=== PATIENT | male | born 1970 | race Caucasian/White ===

== ENCOUNTER → 2020-02-11 | Outpatient (CLI) | payer OTHER | END | disposition home or self-care (01) | LOC: LABWHC1 12:39 | PROVIDERS: ATTEND Anesthesiology | DX: Z11.59 Encounter for screening for other viral diseases (principal) | CPT/HCPCS: 87635 ==

== ENCOUNTER → 2020-05-07 | Outpatient (CLI) | payer OTHER ==
--- NOTE | 2020-05-07 08:37 | XR ---
EXAMINATION TYPE: XR chest 2V DATE OF EXAM: 05/07/2020 COMPARISON: NONE TECHNIQUE: PA and lateral views submitted. HISTORY: Cough and fever FINDINGS: Subsegmental left perihilar changes are seen. No pleural effusion or pneumothorax. No overt failure. Heart size normal. Hyperinflation suggests COPD. IMPRESSION: 1. COPD with left basilar atelectasis or early infiltrate.
== END | disposition home or self-care (01) ==
LOC: RADXRWHC 08:02
PROVIDERS: ATTEND Internal Medicine
DX: U07.1 COVID-19 (principal); J44.9 Chronic obstructive pulmonary disease, unspecified
CPT/HCPCS: 71046

== ENCOUNTER 2020-05-09 15:26 | Inpatient (IN) | payer OTHER ==
[2020-05-09] MEDS ORDERED: SODIUM CHLORIDE 0.9% 1,000 ML IV STA (16:17)
[2020-05-09] MEDS ORDERED: ACETAMINOPHEN TAB 500 MG TAB PO STA (16:17)
[2020-05-09 16:24] LABS: Basophils % (A) 0 %; Eosinophils % (A) 0 %; HCT 48.9 % (39.0-53.0); HGB 16.6 gm/dL (13.0-17.5); Lymphocytes # (A) 0.6 k/uL (1.0-4.8); Lymphocytes % (A) 5 %; MCH 31.5 pg (25.0-35.0); MCHC 33.9 g/dL (31.0-37.0); MCV 92.9 fL (80.0-100.0); Mean Platelet Volume 7.9; Monocytes # (A) 0.5 k/uL (0-1.0); Monocytes % (A) 5 %; Neutrophils # (A) 10.8 k/uL (1.3-7.7); Neutrophils % (A) 89 %; RBC 5.27 m/uL (4.30-5.90); WBC 12.1 k/uL (3.8-10.6)
[2020-05-09] MEDS: DEXAMETHASONE SOD PHOSPHATE 10 MG/ML 1 ML VIAL IV SCH (16:25)
[2020-05-09 16:27] LABS: Platelet Count 194 k/uL (150-450)
[2020-05-09 16:30] LABS: ALT 116 U/L (4-49); AST 106 U/L (17-59); African American GFR (CKD) >90 (>60 ml/min/1.73 sqM); Albumin 3.9 g/dL (3.5-5.0); Alkaline Phosphatase 467 U/L (38-126); Anion Gap 7 mmol/L; Blood Urea Nitrogen 16 mg/dL (9-20); C Reactive Protein 26.3 mg/L (<10.0); Calcium 9.1 mg/dL (8.4-10.2); Carbon Dioxide 26 mmol/L (22-30); Chloride 103 mmol/L (98-107); Glucose 118 mg/dL (74-99); LDH 757 U/L (313-618); Magnesium 1.8 mg/dL (1.6-2.3); Non-African American GFR(CKD) >90 (>60 ml/min/1.73 sqM); Potassium 4.3 mmol/L (3.5-5.1); Sodium 136 mmol/L (137-145); Total Protein 7.8 g/dL (6.3-8.2)
[2020-05-09 16:32] LABS: D-Dimer 0.58 mg/L FEU (<0.60); INR 0.9 (<1.2); Partial Thromboplastin Time 23.5 sec (22.0-30.0); Prothrombin Time 9.5 sec (9.0-12.0)
--- NOTE | 2020-05-09 16:44 | XR ---
EXAMINATION TYPE: XR chest 1V portable DATE OF EXAM: 05/09/2020 COMPARISON: NONE HISTORY: Cough and fever TECHNIQUE: Single view FINDINGS: Heart and mediastinum are normal. There is slight coarsening of interstitial markings. Ther e is no pulmonary consolidation. Bony thorax is intact. There is no pleural effusion. IMPRESSION: There is a mild pulmonary interstitial increased density increased compared to old exam. No pulmonary consolidation or heart failure.
[2020-05-09] MEDS ORDERED: AZITHROMYCIN 500 MG in SODIUM CHLORIDE 0.9% 250 ML IVPB STA (18:11)
--- NOTE | 2020-05-09 18:19 | ED ---
SOB HPI - General Chief Complaint: Shortness of Breath Stated Complaint: fever Time Seen by Provider: 05/09/20 15:44 Source: patient, family Mode of arrival: ambulatory Limitations: no limitations - History of Present Illness Initial Comments: Patient presents with shortness of breath. He also nearly passed out earlier today. He has lightheadedness. He has no chest or belly or back pain. He has no blood in the stool. He has no dysuria. He has no nausea or vomiting or diaphoresis. 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 He has cough. He feels worse with exertion. - Related Data Allergies Allergy/AdvReac Type Severity Reaction Status Date / Time No Known Allergies Allergy Verified 05/09/20 15:35 Review of Systems ROS Statement: Those systems with pertinent positive or pertinent negative responses have been documented in the HPI. ROS Other: All systems not noted in ROS Statement are negative. Past Medical History Past Medical History: No Reported History History of Any Multi-Drug Resistant Organisms: None Reported Past Surgical History: No Surgical Hx Reported Past Psychological History: No Psychological Hx Reported Smoking Status: Never smoker Past Alcohol Use History: None Reported Past Drug Use History: None Reported General Exam Limitations: no limitations General appearance: alert, in no apparent distress Head exam: Present: atraumatic, normocephalic, normal inspection Eye exam: Present: normal appearance, PERRL, EOMI. Absent: scleral icterus, conjunctival injection, periorbital swelling ENT exam: Present: normal exam, mucous membranes moist Neck exam: Present: normal inspection. Absent: tenderness, meningismus, lymphadenopathy Respiratory exam: Present: normal lung sounds bilaterally. Absent: respiratory distress, wheezes, rales, rhonchi, stridor Cardiovascular Exam: Present: regular rate, normal rhythm, normal heart sounds. Absent: systolic murmur, diastolic murmur, rubs, gallop, clicks GI/Abdominal exam: Present: soft, normal bowel sounds. Absent: distended, tenderness, guarding, rebound, rigid Extremities exam: Present: normal inspection, full ROM, normal capillary refill. Absent: tenderness, pedal edema, joint swelling, calf tenderness Back exam: Present: normal inspection Neurological exam: Present: alert, oriented X3, CN II-XII intact Psychiatric exam: Present: normal affect, normal mood Skin exam: Present: warm, dry, intact, normal color. Absent: rash Course Vital Signs 05/09/20 05/09/20 05/09/20 15:35 16:16 17:21 Temperature 97.5 F L 99.1 F Pulse Rate 59 L 46 L Respiratory 18 20 18 Rate Blood Pressure 116/65 132/79 O2 Sat by Pulse 97 97 Oximetry Medical Decision Making - Medical Decision Making patient presents with shortness of breath. I'm concerned given his near syncopal episode. Patient will be admitted overnight. - Lab Data Result diagrams: 05/09/20 15:44 05/09/20 15:44 Lab Results 05/09/20 05/09/20 05/09/20 Range/Units 15:44 15:44 15:44 WBC 12.1 H (3.8-10.6) k/uL RBC 5.27 (4.30-5.90) m/uL Hgb 16.6 (13.0-17.5) gm/dL Hct 48.9 (39.0-53.0) % MCV 92.9 (80.0-100.0) fL MCH 31.5 (25.0-35.0) pg MCHC 33.9 (31.0-37.0) g/dL RDW 12.0 (11.5-15.5) % Plt Count 194 D (150-450) k/uL MPV 7.9 Neutrophils % 89 % Lymphocytes % 5 % Monocytes % 5 % Eosinophils % 0 % Basophils % 0 % Neutrophils # 10.8 H (1.3-7.7) k/uL Lymphocytes # 0.6 L (1.0-4.8) k/uL Monocytes # 0.5 (0-1.0) k/uL Eosinophils # 0.0 (0-0.7) k/uL Basophils # 0.0 (0-0.2) k/uL PT 9.5 (9.0-12.0) sec INR 0.9 (<1.2) APTT 23.5 (22.0-30.0) sec D-Dimer 0.58 (<0.60) mg/L FEU Sodium 136 L (137-145) mmol/L Potassium 4.3 (3.5-5.1) mmol/L Chloride 103 (98-107) mmol/L Carbon Dioxide 26 (22-30) mmol/L Anion Gap 7 mmol/L BUN 16 (9-20) mg/dL Creatinine 0.75 (0.66-1.25) mg/dL Est GFR (CKD-EPI)AfAm >90 (>60 ml/min/1.73 sqM) Est GFR (CKD-EPI)NonAf >90 (>60 ml/min/1.73 sqM) Glucose 118 H (74-99) mg/dL Plasma Lactic Acid Leonardo (0.7-2.0) mmol/L Calcium 9.1 (8.4-10.2) mg/dL Magnesium 1.8 (1.6-2.3) mg/dL Total Bilirubin 1.0 (0.2-1.3) mg/dL AST 106 H (17-59) U/L ALT 116 H (4-49) U/L Alkaline Phosphatase 467 H (38-126) U/L Lactate Dehydrogenase 757 H (313-618) U/L C-Reactive Protein 26.3 H (<10.0) mg/L Total Protein 7.8 (6.3-8.2) g/dL Albumin 3.9 (3.5-5.0) g/dL Coronavirus (PCR) (Not Detectd) 05/09/20 05/09/20 Range/Units 15:44 17:30 WBC (3.8-10.6) k/uL RBC (4.30-5.90) m/uL Hgb (13.0-17.5) gm/dL Hct (39.0-53.0) % MCV (80.0-100.0) fL MCH (25.0-35.0) pg MCHC (31.0-37.0) g/dL RDW (11.5-15.5) % Plt Count (150-450) k/uL MPV Neutrophils % % Lymphocytes % % Monocytes % % Eosinophils % % Basophils % % Neutrophils # (1.3-7.7) k/uL Lymphocytes # (1.0-4.8) k/uL Monocytes # (0-1.0) k/uL Eosinophils # (0-0.7) k/uL Basophils # (0-0.2) k/uL PT (9.0-12.0) sec INR (<1.2) APTT (22.0-30.0) sec D-Dimer (<0.60) mg/L FEU Sodium (137-145) mmol/L Potassium (3.5-5.1) mmol/L Chloride (98-107) mmol/L Carbon Dioxide (22-30) mmol/L Anion Gap mmol/L BUN (9-20) mg/dL Creatinine (0.66-1.25) mg/dL Est GFR (CKD-EPI)AfAm (>60 ml/min/1.73 sqM) Est GFR (CKD-EPI)NonAf (>60 ml/min/1.73 sqM) Glucose (74-99) mg/dL Plasma Lactic Acid Leonardo 1.5 (0.7-2.0) mmol/L Calcium (8.4-10.2) mg/dL Magnesium (1.6-2.3) mg/dL Total Bilirubin (0.2-1.3) mg/dL AST (17-59) U/L ALT (4-49) U/L Alkaline Phosphatase (38-126) U/L Lactate Dehydrogenase (313-618) U/L C-Reactive Protein (<10.0) mg/L Total Protein (6.3-8.2) g/dL Albumin (3.5-5.0) g/dL Coronavirus (PCR) Detected A (Not Detectd) 05/09/20 18:18 twelve-lead EKG shows ventricular rate 49 bpm, normal NC interval Francisco complex is, no ST elevation or depression, interpreted by me as sinus bradycardia. 05/09/20 18:18 Disposition Clinical Impression: Pneumonia Disposition: ADMITTED IP TO THIS HOSP Condition: Fair Is patient prescribed a controlled substance at d/c from ED?: No Referrals: Karina Crystal MD [Primary Care Provider] - 1-2 days
[2020-05-09] MEDS ORDERED: MAG HYDROX/AL HYDROX/SIMETH 30 ML CUP PO PRN (18:20)
[2020-05-09] MEDS ORDERED: TEMAZEPAM 15 MG CAP PO PRN (18:20)
[2020-05-09] MEDS ORDERED: NALOXONE 0.4 MG/ML 1 ML VIAL IV PRN (18:20)
[2020-05-09] MEDS ORDERED: ONDANSETRON 4 MG/2 ML VIAL IVP PRN (18:20)
[2020-05-09] MEDS: ASCORBIC ACID 500 MG TAB PO SCH (21:06)
[2020-05-09 22:47] LABS: Ferritin 560.8 ng/mL (22.0-322.0)
[2020-05-10] MEDS: ACETAMINOPHEN TAB 325 MG TAB PO PRN ×3 (02:06→17:05)
[2020-05-10] MEDS: SODIUM CHLORIDE 0.9% 1,000 ML IV SCH ×3 (06:00→22:42)
[2020-05-10 06:12] LABS: Basophils % (A) 0 %; Eosinophils % (A) 0 %; HCT 45.5 % (39.0-53.0); HGB 15.3 gm/dL (13.0-17.5); Lymphocytes # (A) 0.5 k/uL (1.0-4.8); Lymphocytes % (A) 5 %; MCH 31.5 pg (25.0-35.0); MCHC 33.6 g/dL (31.0-37.0); MCV 93.9 fL (80.0-100.0); Mean Platelet Volume 8.2; Monocytes # (A) 0.4 k/uL (0-1.0); Monocytes % (A) 4 %; Neutrophils # (A) 9.7 k/uL (1.3-7.7); Neutrophils % (A) 90 %; Platelet Count 160 k/uL (150-450); RBC 4.84 m/uL (4.30-5.90); RDW 11.9 % (11.5-15.5); WBC 10.8 k/uL (3.8-10.6)
[2020-05-10 06:30] LABS: ALT 142 U/L (4-49); AST 134 U/L (17-59); African American GFR (CKD) >90 (>60 ml/min/1.73 sqM); Albumin 3.1 g/dL (3.5-5.0); Alkaline Phosphatase 355 U/L (38-126); Anion Gap 4 mmol/L; Blood Urea Nitrogen 14 mg/dL (9-20); Calcium 8.5 mg/dL (8.4-10.2); Carbon Dioxide 27 mmol/L (22-30); Chloride 107 mmol/L (98-107); Glucose 134 mg/dL (74-99); LDH 689 U/L (313-618); Non-African American GFR(CKD) >90 (>60 ml/min/1.73 sqM); Potassium 4.5 mmol/L (3.5-5.1); Sodium 138 mmol/L (137-145); Total Bilirubin 0.8 mg/dL (0.2-1.3); Total Protein 6.5 g/dL (6.3-8.2)
[2020-05-10 06:56] LABS: C Reactive Protein 46.4 mg/L (<10.0)
[2020-05-10] MEDS: AZITHROMYCIN 500 MG TAB PO SCH (08:07)
[2020-05-10] MEDS: CHOLECALCIFEROL 400 UNIT TAB PO SCH (08:08)
[2020-05-10] MEDS: ZINC SULFATE 220 MG CAP PO SCH (08:08)
[2020-05-10] MEDS: FAMOTIDINE 20 MG TAB PO SCH (08:08)
[2020-05-10] MEDS: ENOXAPARIN 40 MG/0.4 ML SYRINGE SQ SCH ×2 (08:08→08:33)
[2020-05-10] MEDS: ASCORBIC ACID 500 MG TAB PO SCH ×2 (08:33→21:03)
[2020-05-10] MEDS: DEXAMETHASONE SOD PHOSPHATE 10 MG/ML 1 ML VIAL IV SCH (08:34)
[2020-05-10] MEDS: BENZONATATE 100 MG CAP PO SCH ×3 (09:13→21:03)
[2020-05-10 09:49] LABS: Ferritin 576.1 ng/mL (22.0-322.0)
--- NOTE | 2020-05-10 14:24 | P.HPIM ---
History of Present Illness H&P Date: 05/10/20 Chief Complaint: COVID-19 pneumonia is a very pleasant 50 year old male with no prior medical history , who presented to my office with 1 week history of increased fever and chills, chest tightness and generalized weakness along with dry cough, COVID-a9 was suspected and he had COVID swab in the office last this passed , along with Influenza A, B and had laboratory evaluation that showed elevated CRP, LDH and normal D-Dimer along with chronically elevated LFTs with prior investigation locally and at a tertiary care center that yield no confirm diagnosis, his oxygen level was good all the time, patient was send home for 2 week quarantine on Medrol dose pack along with Z-Pack, and to get started on zinc sulfate 220 mg orally daily, vitamin D 5000 units orally daily and vitamin C 1000 mg orally daily and avoiding Motrin, patient felt better in the next 24 hours but subsequently yesterday his temperature ramana to 102 and was feeling extremely sick , with dry cough and chest tightness, his initial CXR on showed left lower lobe early pneumonia, and yesterday showed increased interstitial marking worse than yesterday, his labs showed mild leukocytosis with elevated Ferritin, LDH, and CRP, mild hyponatremia, and elevated LFTs, and his d-dimer was negative, patient was started on IVF and he was placed on Rocephin 2 gr IVPB daily along with Zithromax 500 mg orally daily, and Consult to start the patient on Remdisivir if needed, was admitted to the hospital for evaluation and treatment, Review of Systems Constitutional: Reports chills, Reports fatigue, Reports fever, Reports malaise, Reports weakness, Reports weight loss Eyes: denies blurred vision, denies bulging eye, denies decreased vision, denies diplopia Ears, nose, mouth and throat: Reports sore throat, Denies dysphagia, Denies neck lump Cardiovascular: Reports chest pain, Reports decreased exercise tolerance, Reports dyspnea on exertion, Reports shortness of breath, Denies irregular heart beat, Denies leg edema, Denies syncope Respiratory: Reports congestion, Reports cough, Reports cough with sputum, Reports respiratory infections, Denies home oxygen, Denies sleep apnea, Denies snoring, Denies wheezing Gastrointestinal: Reports diarrhea, Reports loss of appetite, Denies abdominal pain, Denies bloating, Denies BRBPR, Denies heartburn, Denies melena, Denies nausea, Denies vomiting Genitourinary: Denies dysuria, Denies incontinence, Denies nocturia Musculoskeletal: Denies myalgias Musculoskeletal: absent: ankle pain, ankle stiffness, ankle swelling, elbow pain, elbow stiffness, elbow swelling, foot pain, foot stiffness, foot swelling, hand pain, hand stiffness, hand swelling, hip pain, hip stiffness, hip swelling, knee pain, knee stiffness, knee swelling, shoulder pain, shoulder stiffness, shoulder swelling, wrist pain, wrist stiffness, wrist swelling Neurological: Denies numbness, Denies weakness Endocrine: Reports fatigue Past Medical History Past Medical History: No Reported History History of Any Multi-Drug Resistant Organisms: None Reported Past Surgical History: No Surgical Hx Reported Past Psychological History: No Psychological Hx Reported Smoking Status: Never smoker Past Alcohol Use History: None Reported Additional Past Alcohol Use History / Comment(s): Patient has been a lifelong nonsmoker, no illicit drug use, no marijuana use. He is and lives at home with his . Past Drug Use History: None Reported - Past Family History Father Family Medical History: Coronary Artery Disease (CAD) (Father is 78 with history of CAD post PCI.) Mother Family Medical History: No Reported History (Mother is 75 and healthy.) Brother(s) Family Medical History: Hyperlipidemia (one brother with hyperlipidemia.) Sister(s) Family Medical History: No Reported History (one sister is ok.) Daughter(s) Family Medical History: No Reported History (one daughter no major medical isssues.) Son(s) Family Medical History: No Reported History (one son no major medical issues) Medications and Allergies Home Medications Medication Instructions Recorded Confirmed Type Acetaminophen [Tylenol 8 Hour] 1,300 mg PO ONCE PRN 05/09/20 05/10/20 History Azithromycin [Zithromax Z-pack (6 See Taper PO DIRECTED 05/09/20 05/10/20 History tabs)] methylPREDNISolone [Medrol Dose See Taper PO DAILY 05/09/20 05/10/20 History Pack] Allergies Allergy/AdvReac Type Severity Reaction Status Date / Time No Known Allergies Allergy Verified 05/10/20 08:36 Physical Exam Vitals: Vital Signs Temp Pulse Pulse Resp BP BP Pulse Ox 05/10/20 03:00 97.6 F 43 L 16 127/73 97 05/09/20 21:00 97.9 F 50 L 18 128/74 96 05/09/20 18:48 97.9 F 50 L 18 128/74 96 05/09/20 17:21 99.1 F 46 L 18 132/79 97 05/09/20 16:16 20 05/09/20 15:35 97.5 F L 59 L 18 116/65 97 Intake and Output 05/09/20 05/09/20 05/10/20 14:59 22:59 06:59 Intake Total 1700 Balance 1700 Intake: Intake, IV Titration 1500 Amount Azithromycin 500 mg In 500 Sodium Chloride 0.9% 250 ml @ 250 mls/hr IVPB ONCE STA Rx#:[id number] Sodium Chloride 0.9% 1, 1000 000 ml @ 999 mls/hr IV . Q1H1M STA Rx#:[id number] Oral 200 Other: Voiding Method Toilet Toilet # Voids 1 2 Weight 72.575 kg Physical examination: General:this is a 50 -year old male ill appearing with no respiratory distress. HEENT: head is atraumatic normocephalic pupils were equal round reactive to light and accommodations extra ocular muscle movement were intact, mucous membranes of the mout are somewhat dry. Neck: supple no JVP, no lymphadenopathy. Chest: decrease breath sounds at the bases with few ronchi, no expiratory wheezes, no intercostal retraction. Heart: first heart sound is normal, second heart sound is normal there is no gallop or murmur. Abdomen: soft non tender non distended positive bowel sounds. extremities: there is no edema no calf tenderness, DP + 2 bilaterally. Neurologic examination: patient is awake alert and oriented X 3 CN II-XII are grossly intact, muscle power 5/5 in upper and lower extremities bilaterally, deep tendon rellexes were normal. Results CBC & Chem 7: 05/10/20 05:47 05/10/20 05:47 Labs: Abnormal Lab Results - Last 24 Hours (Table) 05/09/20 05/09/20 05/09/20 Range/Units 15:44 15:44 17:30 WBC 12.1 H (3.8-10.6) k/uL Neutrophils # 10.8 H (1.3-7.7) k/uL Lymphocytes # 0.6 L (1.0-4.8) k/uL Sodium 136 L (137-145) mmol/L Glucose 118 H (74-99) mg/dL Ferritin 560.8 H (22.0-322.0) ng/mL AST 106 H (17-59) U/L ALT 116 H (4-49) U/L Alkaline Phosphatase 467 H (38-126) U/L Lactate Dehydrogenase 757 H (313-618) U/L C-Reactive Protein 26.3 H (<10.0) mg/L Coronavirus (PCR) Detected A (Not Detectd) Thrombosis Risk Factor Assmnt - DVT/VTE Prophylaxis DVT/VTE Prophylaxis: Pharmacologic Prophylaxis ordered, Mechanical Prophylaxis ordered - Choose All That Apply Any of the Below Risk Factors Present?: Yes Each Factor Represents 1 point: Age 41-60 years, Serious lung disease incl. pneumonia (< 1month) Other Risk Factors: No Other congenital or acquired thrombophilia - If yes, enter type in comment: No Thrombosis Risk Factor Assessment Total Risk Factor Score: 2 Thrombosis Risk Factor Assessment Level: Low Risk Assessment and Plan Assessment: Assessment and plan: 1. COVID-19 pneumonia. we will continue with droplet precautions and eye protection, Rocephin 2 gr IVPB daily along with Zithromax 500 mg orally daily, we will continue with IVF NS at 125 cc/h, we will continue with zinc sulfate 220 mg orally daily, vitamin C 1000 mg orally daily, and vitamin D supplement,we will continue with Decadron 6 mg oraly once a day, pulmonary consult and ID consult, we will see how he does he may be a candidate for Remdesivir we will check CT scan of the chest. 2. Leukocytosis. Likely related to COVID-19 we will continue with IVF and we will repeat CBC in 24 hours. 4. Mild hyponatremia due to hypovolemia. we will continue with IVF with Normal saline at 125 ml/h. 5. chronically elevated LFTs. with negative work up. 6. DVT prophylaxis. we will start Lovenox 40 mg sc daily. 7. GI prophylaxis. we will continue with Pepcid 40 mg orally daily. 8.Admits to inpatient . estimated length of stay is 2 midnights. 9. Full code.
--- NOTE | 2020-05-10 14:53 | P.CNPUL ---
History of Present Illness Consult date: 05/10/20 Reason for consult: dyspnea History of present illness: 50-year-old patient's emergency department with some shortness of breath and generalized weakness. Patient nearly passed out earlier today of admission and the patient was feeling lightheaded. The patient had positive cough and exertional dyspnea. No chest pain. No nausea vomiting or diarrhea. He, the patient was afebrile with a T-max of 99.1. No tachycardia. No tachypnea. Bloo d pressure has been well maintained and the blood work showed a white cell count of 12.1 with a component of lymphopenia. Hemoglobin 16.6 and a platelet count of 194. The patient had normal renal function with a creatinine of 0.75 and the coagulation profile was within normal limits with a d-dimer of 0.58. LFTs were abnormal with an AST of 106, ALT of 116, alkaline phosphatase of 467 and the patient had a CRP of 26.3 with a lactic acid level of 757 and the patient ruled in for coronavirus, covid 19 infection. The patient is on room air oxygen with a pulse of 97%. The chest x-ray showed some mild increased interstitial changes in the mid lungs bilaterally. No clear consolidation. No cardiomegaly. Patient is currently on oral Decadron. Review of Systems Constitutional: Reports fatigue, Reports weakness Eyes: denies as per HPI, denies blurred vision, denies bulging eye, denies decreased vision, denies diplopia, denies discharge, denies dry eye, denies irritation, denies itching, denies pain, denies photophobia, denies loss of peripheral vision, denies loss of vision, denies tunnel vision/blind spots Ears: deny: decreased hearing, ear discharge, earache, tinnitus Ears, nose, mouth and throat: Denies headache, Denies sore throat Breasts: absent: as per HPI, gynecomastia Gastrointestinal: Reports as per HPI Genitourinary: Reports as per HPI Musculoskeletal: Reports as per HPI Musculoskeletal: absent: ankle pain, ankle stiffness, ankle swelling, as per HPI, elbow pain, elbow stiffness, elbow swelling, foot pain, foot stiffness, foot swelling, hand pain, hand stiffness, hand swelling, hip pain, hip stif fness, hip swelling, knee pain, knee stiffness, knee swelling, shoulder pain, shoulder stiffness, shoulder swelling, wrist pain, wrist stiffness, wrist swelling Neurological: Reports as per HPI, Reports weakness Psychiatric: Reports as per HPI Endocrine: Reports as per HPI Hematologic/Lymphatic: Reports as per HPI Allergic/Immunologic: Reports as per HPI Past Medical History Past Medical History: No Reported History History of Any Multi-Drug Resistant Organisms: None Reported Past Surgical History: No Surgical Hx Reported Past Psychological History: No Psychological Hx Reported Smoking Status: Never smoker Past Alcohol Use History: None Reported Additional Past Alcohol Use History / Comment(s): Patient has been a lifelong nonsmoker, no illicit drug use, no marijuana use. He is and lives at home with his . Past Drug Use History: None Reported Medications and Allergies Home Medications Medication Instructions Recorded Confirmed Type Acetaminophen [Tylenol 8 Hour] 1,300 mg PO ONCE PRN 05/09/20 05/10/20 History Azithromycin [Zithromax Z-pack (6 See Taper PO DIRECTED 05/09/20 05/10/20 History tabs)] methylPREDNISolone [Medrol Dose See Taper PO DAILY 05/09/20 05/10/20 History Pack] Allergies Allergy/AdvReac Type Severity Reaction Status Date / Time No Known Allergies Allergy Verified 05/10/20 08:36 Physical Exam Vitals: Vital Signs Temp Pulse Pulse Resp BP BP Pulse Ox 05/10/20 14:23 98.7 F 59 L 18 97 05/10/20 13:59 20 05/10/20 12:44 96 05/10/20 08:04 97.5 F L 48 L 20 147/84 96 05/10/20 03:00 97.6 F 43 L 16 127/73 97 05/09/20 21:00 97.9 F 50 L 18 128/74 96 05/09/20 18:48 97.9 F 50 L 18 128/74 96 05/09/20 17:21 99.1 F 46 L 18 132/79 97 05/09/20 16:16 20 05/09/20 15:35 97.5 F L 59 L 18 116/65 97 Intake and Output 05/09/20 05/10/20 05/10/20 22:59 06:59 14:59 Intake Total 1700 1690 Balance 1700 1690 Intake: Intake, IV Titration 1500 750 Amount Azithromycin 500 mg In 500 Sodium Chloride 0.9% 250 ml @ 250 mls/hr IVPB ONCE STA Rx#:[id number] Sodium Chloride 0.9% 1, 750 000 ml @ 125 mls/hr IV . Q8H PARAM Rx#:[id number] Sodium Chloride 0.9% 1, 1000 000 ml @ 999 mls/hr IV . Q1H1M STA Rx#:[id number] Oral 200 940 Other: Voiding Method Toilet Toilet Toilet # Voids 1 2 2 # Bowel Movements 0 Weight 72.575 kg The patient appeared well nourished and normally developed. Vital signs as documented. Head exam is unremarkable. No scleral icterus or corneal arcus noted. Neck is without jugular venous distension, thyromegaly, or carotid bruits. Carotid upstrokes are brisk bilaterally. Lungs are clear to auscultation and percussion. Cardiac exam reveals the PMI to be normally sized and situated. Rhythm is regular. First and second heart sounds normal. No murmurs, rubs or gallops. Abdominal exam reveals normal bowel sounds, no masses, no organomegaly and no aortic enlargement. Extremities are nonedematous and both femoral and pedal pulses are normal. Examination of the skin revealed no evidence of significant rashes, suspicious appearing nevi or other concerning lesions.Neurologically, the patient is awake and alert and the patient does not have any focal neurological deficit. Cranial nerves are essentially intact. Results - Laboratory Findings CBC and BMP: 05/10/20 05:47 05/10/20 05:47 PT/INR, D-dimer PT 9.5 sec (9.0-12.0) 05/09/20 15:44 INR 0.9 (<1.2) 05/09/20 15:44 D-Dimer 0.71 mg/L FEU (<0.60) H 05/10/20 05:47 Abnormal lab findings: Abnormal Labs 05/09/20 05/09/20 05/09/20 15:44 15:44 17:30 WBC 12.1 H Neutrophils # 10.8 H Lymphocytes # 0.6 L D-Dimer Sodium 136 L Creatinine Glucose 118 H Ferritin 560.8 H AST 106 H ALT 116 H Alkaline Phosphatase 467 H Lactate Dehydrogenase 757 H C-Reactive Protein 26.3 H Albumin Coronavirus (PCR) Detected A 05/10/20 05/10/20 05/10/20 05:47 05:47 05:47 WBC 10.8 H Neutrophils # 9.7 H Lymphocytes # 0.5 L D-Dimer 0.71 H Sodium Creatinine 0.58 L Glucose 134 H Ferritin 576.1 H AST 134 H ALT 142 H Alkaline Phosphatase 355 H Lactate Dehydrogenase 689 H C-Reactive Protein 46.4 H Albumin 3.1 L Coronavirus (PCR) - Diagnostic Findings Chest x-ray: image reviewed Assessment and Plan Plan: 1 acute covid 19 related pneumonia, as the patient presents with generalized weakness and cough and shortness of breath and there is some limited infiltration of the lungs in the midlung blas bilaterally. No sedated and hypoxemia this point in time and the patient is on room air oxygen. 2 dyspnea secondary to above 3 cough secondary to above 4 abnormal LFTs secondary to above Plan Continue supportive care Decadron 6 mg by mouth daily Monitor fever pattern Continue the rest of supplements including zinc, vitamin C, vitamin D, melatonin of Pepcid Watched oxygenation very closely Lovenox for DVT prophylaxis We'll continue to follow I personally do not see the need for antibiotics and I think the Rocephin and azithromycin be discontinued. Plan
[2020-05-10] MEDS: ALBUTEROL HFA INHALER INHALATION SCH ×3 (15:51→19:51)
--- NOTE | 2020-05-10 23:26 | CONS ---
CONSULTATION DATE OF SERVICE: 05/10/2020 REASON FOR CONSULTATION: COVID-19 infection. HISTORY OF PRESENT ILLNESS: The patient is a 50-year-old male, started getting sick last week, symptom has been mostly fever and chills, chest tightness and generalized weakness along with a dry cough. The patient did have a COVID-19 swab in the office last week that was negative. The patient has been treated with Zithromax along with prednisone when the patient started; however, the patient felt better initially. However, subsequently got sick again and has been complaining of no energy, so much weakness that he almost passed out. The patient is complaining of shortness of breath on minimal exertion. He did have a cough which is mild in intensity not bringing up any sputum. No nausea, no vomiting. No abdominal pain or any diarrhea. With these symptoms the patient was evaluated by the ER physician. On arrival to the ER, the patient has been afebrile. The patient has been saturating 97% to 96% on room air. The patient did have a white count of 12.1 with lymphopenia. D-dimer initially was 0.58, repeat is 0.71. Ferritin 560. Liver enzymes mildly elevated. CRP 26.3, repeat is 46.4. Procalcitonin was normal. The patient did have a chest x-ray, mild pulmonary interstitial increased density compared to old exam. The patient has been admitted to the hospital where the patient was started on Zithromax, Tessalon Perles, Decadron, Lovenox, Pepcid, zinc sulfate. Infectious Disease was consulted for further management and and possible need for remdesivir. REVIEW OF SYSTEMS: Positive points have been mentioned in HPI. Rest of the systems are negative. PAST MEDICAL HISTORY: No major illnesses. PAST SURGICAL HISTORY: No surgeries. SOCIAL HISTORY: No smoking. No drinking. , lives with his . Physician in this facility. FAMILY HISTORY: No pertinent findings noticed. ALLERGIES: No known drug allergies. MEDICATIONS: Medications include the patient is currently on Tylenol, Maalox, vitamin C, Zithromax, Tessalon Perles, Rocephin, Decadron, Lovenox, Pepcid, Narcan, Zofran, Restoril, and zinc sulfate. PHYSICAL EXAMINATION: Blood pressure 155/76, pulse of 50, temperature 97.7. He is 96% on room air. General description is a middle-aged male lying in bed in no distress. No tachypnea or accessory muscle of respiration use. HEENT: Examination shows no pallor or scleral icterus. Oral mucous membranes dry. NECK: Trachea central. No thyromegaly. LUNGS: Unlabored breathing, a few crackles at the bases bilaterally. No wheeze. HEART: S1, S2. Regular rate and rhythm. ABDOMEN: Soft, no tenderness. No guarding or rigidity. EXTREMITIES: No edema of feet. SKIN EXAMINATION: No rash or mass palpable. NEUROLOGICAL: The patient is awake, alert, oriented x3. Mood and affect normal. LABS: Hemoglobin is 15.3, white count 10.4, BUN of 14, creatinine 0.58. Liver enzymes are mildly elevated. Epperson PCR positive. Chest x-ray as mentioned above. DIAGNOSTIC IMPRESSION AND PLAN: Patient admitted to the hospital with generalized weakness, which in this patient who has been diagnosed with acute COVID-19 infection pneumonia. In this patient, however, fever seemed to have resolved since admission to the hospital and the patient is not hypoxic, not requiring any supplemental oxygen. PLAN: 1. Patient to continue with Decadron, Lovenox, zinc sulfate as well as Zithromax. Rocephin to be discontinued as no evidence of any secondary bacterial pneumonia and procalcitonin is normal. 2. Currently, the patient does not qualify for remdesivir as per discussion with the pharmacist as the patient has not been hypoxic, saturating 97% to 96% on room air. Will follow his sats and monitor him closely for any evidence of any worsening respiratory distress, remdesivir will be offered. 3. Droplet isolation. 4. We will follow up on clinical condition and further adjust medication if needed. Thank you for this consultation. Will follow this patient along with you. MMODL / IJN: [id number] /
[2020-05-11 02:35] VITALS: RESP 18
[2020-05-11] MEDS: SODIUM CHLORIDE 0.9% 1,000 ML IV SCH ×2 (06:07→08:27)
[2020-05-11] MEDS: AZITHROMYCIN 500 MG TAB PO SCH (08:08)
[2020-05-11] MEDS: FAMOTIDINE 20 MG TAB PO SCH (08:10)
[2020-05-11] MEDS: BENZONATATE 100 MG CAP PO SCH (08:11)
[2020-05-11] MEDS: ZINC SULFATE 220 MG CAP PO SCH (08:13)
[2020-05-11] MEDS: CHOLECALCIFEROL 400 UNIT TAB PO SCH (08:13)
[2020-05-11] MEDS: ACETAMINOPHEN TAB 325 MG TAB PO PRN (08:15)
[2020-05-11] MEDS: DEXAMETHASONE SOD PHOSPHATE 10 MG/ML 1 ML VIAL IV SCH (08:17)
[2020-05-11] MEDS: ENOXAPARIN 40 MG/0.4 ML SYRINGE SQ SCH (08:22)
[2020-05-11] MEDS: ALBUTEROL HFA INHALER INHALATION SCH ×2 (08:41→11:55)
[2020-05-11 09:23] VITALS: BP 110/79; PULSE 86; TEMP 97.7
[2020-05-11] MEDS: ASCORBIC ACID 500 MG TAB PO SCH (10:32)
--- NOTE | 2020-05-11 11:33 | P.DS ---
Providers Date of admission: 05/10/20 08:54 Expected date of discharge: 05/11/20 Attending physician: Karina Crystal Consults: 05/09/20 18:20 Consult Physician Routine Consulting Provider: Khalif Gómez Consult Reason/Comments: COVID Do you want consulting provider notified?: Yes 05/10/20 05:52 Consult Physician Routine Consulting Provider: Cecil Hilton Consult Reason/Comments: COVID-19 Do you want consulting provider notified?: Yes Primary care physician: Karina Crystal [facility] Course: is a very pleasant 50 year old male with no prior medical history , who presented to my office with 1 week history of increased fever and chills, chest tightness and generalized weakness along with dry cough, COVID-a9 was suspected and he had COVID swab in the office last this passed , along with Influenza A, B and had laboratory evaluation that showed elevated CRP, LDH and normal D-Dimer along with chronically elevated LFTs with prior investigation locally and at a tertiary care center that yield no confirm diagnosis, his oxygen level was good all the time, patient was send home for 2 week quarantine on Medrol dose pack along with Z-Pack, and to get started on zinc sulfate 220 mg orally daily, vitamin D 5000 units orally daily and vitamin C 1000 mg orally daily and avoiding Motrin, patient felt better in the next 24 hours but subsequently yesterday his temperature ramana to 102 and was feeling extremely sick , with dry cough and chest tightness, his initial CXR on showed left lower lobe early pneumonia, and yesterday showed increased interstitial marking worse than yesterday, his labs showed mild leukocytosis with elevated Ferritin, LDH, and CRP, mild hyponatremia, and elevated LFTs, and his d-dimer was negative, patient was started on IVF and he was placed on Rocephin 2 gr IVPB daily along with Zithromax 500 mg orally daily, and Consult to start the patient on Remdisivir if needed, was admitted to the hospital for evaluation and treatment, 05/11: Patient has been seen by both pulmonary medicine and infectious disease with recommendations to continue Decadron and supplements. No need for antibiotics as no secondary bacterial infection is noted. He continues to have cough. No hypoxia. Pulse ox 96% on room air. Patient has been afebrile. Patient is eating most of his meals. He has been cleared for discharge by Dr. Black. Patient is discharged in stable condition. Discharge diagnoses: 1. COVID-19 pneumonia. 2. Leukocytosis. Likely related to COVID-19 . 4. Mild hyponatremia due to hypovolemia. 5. chronically elevated LFTs. 6. DVT prophylaxis. 7. GI prophylaxis. Patient Condition at Discharge: Fair Plan - Discharge Summary Discharge Rx Participant: No New Discharge Prescriptions: New Zinc Sulfate [Orazinc] 220 mg PO DAILY cap Benzonatate [Tessalon Perles] 200 mg PO TID #30 cap Ascorbic Acid [Vitamin C] 500 mg PO BID tab Cholecalciferol [Vitamin D3] 400 unit PO DAILY tab Continue methylPREDNISolone [Medrol Dose Pack] See Taper PO DAILY Azithromycin [Zithromax Z-pack (6 tabs)] See Taper PO DIRECTED Acetaminophen [Tylenol 8 Hour] 1,300 mg PO ONCE PRN PRN Reason: Pain Discharge Medication List Acetaminophen [Tylenol 8 Hour] 1,300 mg PO ONCE PRN 05/09/20 [History] Azithromycin [Zithromax Z-pack (6 tabs)] See Taper PO DIRECTED 05/09/20 [History] methylPREDNISolone [Medrol Dose Pack] See Taper PO DAILY 05/09/20 [History] Ascorbic Acid [Vitamin C] 500 mg PO BID tab 05/11/20 [Rx] Benzonatate [Tessalon Perles] 200 mg PO TID #30 cap 05/11/20 [Rx] Cholecalciferol [Vitamin D3] 400 unit PO DAILY tab 05/11/20 [Rx] Zinc Sulfate [Orazinc] 220 mg PO DAILY cap 05/11/20 [Rx] Follow up Appointment(s)/Referral(s): Karina Crystal MD [Primary Care Provider] - 1 Week Discharge Disposition: HOME SELF-CARE
--- NOTE | 2020-05-11 13:46 | P.PN ---
Subjective Progress Note Date: 05/11/20 On today's evaluation the patient is feeling better. Cough has subsided. No fever. No chills. No other new complaints otherwise for now. He still having cough and HAS subsided compared to yesterday. No nausea. No vomiting. No diarrhea. He is on oral Decadron. Pulse ox is above 95% on room air oxygen. Discussed the possibility of discharging this patient home today. LFTs are also improving. Objective - Vital Signs Vital signs: Vital Signs Temp 97.7 F 05/11/20 09:00 Pulse 86 05/11/20 09:00 Resp 18 05/11/20 09:00 BP 110/79 05/11/20 09:00 Pulse Ox 96 05/11/20 09:00 Intake & Output 05/10/20 05/11/20 05/11/20 18:59 06:59 18:59 Intake Total 3510 Balance 3510 Intake: Intake, IV Titration 1250 Amount Sodium Chloride 0.9% 1, 1200 000 ml @ 50 mls/hr IV . Q20H PARAM Rx#:[id number] cefTRIAXone 2 gm In 50 Sodium Chloride 0.9% 50 ml @ 100 mls/hr IVPB Q24H PARAM Rx#:[id number] Oral 2260 Other: Voiding Method Toilet Toilet # Voids 2 2 1 # Bowel Movements 0 - Exam The patient appeared well nourished and normally developed. Vital signs as documented. Head exam is unremarkable. No scleral icterus or corneal arcus noted. Neck is without jugular venous distension, thyromegaly, or carotid bruits. Carotid upstrokes are brisk bilaterally. Lungs are clear to auscultation and percussion. Cardiac exam reveals the PMI to be normally sized and situated. Rhythm is regular. First and second heart sounds normal. No murmurs, rubs or gallops. Abdominal exam reveals normal bowel sounds, no masses, no organomegaly and no aortic enlargement. Extremities are nonedematous and both femoral and pedal pulses are normal. Examination of the skin revealed no evidence of sig nificant rashes, suspicious appearing nevi or other concerning lesions.Neurologically, the patient is awake and alert and the patient does not have any focal neurological deficit. Cranial nerves are essentially intact. - Labs CBC & Chem 7: 05/10/20 05:47 05/10/20 05:47 Labs: Microbiology - Last 24 Hours (Table) 05/09/20 15:44 Blood Culture - Preliminary Blood No Growth after 24 hours Assessment and Plan Plan: 1 acute covid 19 related pneumonia, as the patient presents with generalized weakness and cough and shortness of breath and there is some limited infiltration of the lungs in the midlung blas bilaterally. 2 dyspnea secondary to above, improving currently on room air oxygen. 3 cough secondary to above, improving 4 abnormal LFTs secondary to above, improving Plan May discharge the patient home to complete a course of by mouth Decadron for a total of 10 days at a dose of 6 mg. Monitor pulse ox on outpatient basis Contact back if there is any worsening shortness of breath or any hypoxemia Continue supportive care including the supplements with vitamin C and zinc Outpatient follow-up.
== END 2020-05-11 12:25 | disposition home or self-care (01) | DRG 177 ==
LOC: EC 15:26 → 1SOBS 18:20 → OBSVTOIN 05-10 08:54
PROVIDERS: ADMIT Internal Medicine; ATTEND Internal Medicine
DX: U07.1 COVID-19 (principal); J12.89 Other viral pneumonia; E87.1 Hypo-osmolality and hyponatremia; R06.00 Dyspnea, unspecified; E86.1 Hypovolemia; D72.810 Lymphocytopenia; R79.89 Other specified abnormal findings of blood chemistry; Z82.49 Family history of ischemic heart disease and other diseases of the circulatory system; Z83.49 Family history of other endocrine, nutritional and metabolic diseases
CPT/HCPCS: 36415; 71045; 80053; 82728; 83605; 83615; 83735; 84145; 85025; 85379; 85610; 85730; 86140; 87040; 87635; 93005; 94640; 94760; 96361; 96365; 96367; 96375; 99285

== ENCOUNTER → 2024-01-08 | Outpatient (CLI) | payer BC ==
--- NOTE | 2024-01-08 19:48 | CT ---
EXAMINATION TYPE: CT abdomen pelvis wo con DATE OF EXAM: 01/08/2024 COMPARISON: None INDICATION: right flank pain DLP: 570 mGycm, Automated exposure control for dose reduction was used. CONTRAST: 0 mL of Isovue 300. Study performed without Oral Contrast TECHNIQUE: Axial images were obtained from above the diaphragm to the pubic rami in the axial plane a t 5 mm thick sections. Reconstructed images are reviewed on the computer in the coronal plane. FINDINGS: Limited CT sections are obtained the lung bases. The lung bases are clear. CT ABDOMEN: Liver: Normal Spleen: Normal Pancreas: Normal Adrenal glands: The adrenal glands are normal. Gallbladder: Normal Kidneys: No masses are evident. No hydronephrosis is present. No cysts are present. No renal stone s are evident. No hydroureter is evident. Aorta: Vascular calcification is within the aorta. Mild tortuosity is present Inferior vena cava: Normal. CT PELVIS: There is some mild prominence of small bowel loops containing fluid. Mild ileus present. No obstructi on is identified. Colon appears unremarkable. Couple of diverticuli sigmoid colon There are loops of bowel which are incompletely distended or lack oral contrast limiting their evaluation. Appendix: Normal as visualized. Urinary bladder: Normal. No renal or ureteral stones identified. Genitourinary structures: Prostate is prominent. Calcifications left breast. Osseous structures: No suspicious lytic or sclerotic lesions. IMPRESSION: 1. No suspicious renal or ureteral stones. 2. Mild small bowel ileus
== END | disposition home or self-care (01) ==
LOC: RADCTMAIN 17:16
PROVIDERS: ATTEND Internal Medicine
DX: K56.7 Ileus, unspecified (principal)
CPT/HCPCS: 74176